=== PATIENT | male | born 1970 | race Hispanic/Latino ===

== ENCOUNTER 2018-02-07 23:26 | Emergency (ER) | payer BC ==
[2018-02-07] MEDS ORDERED: LIDOCAINE HCL 1% 20 ML VIAL ONE (23:47)
== END 2018-02-08 00:39 | disposition home or self-care (01) ==
LOC: EDH 23:26
DX: L72.3 Sebaceous cyst (principal)
CPT/HCPCS: 10060

== ENCOUNTER 2018-02-09 13:14 | Emergency (ER) | payer BC | END 2018-02-09 16:17 | disposition home or self-care (01) | LOC: EDH 13:14 | DX: Z48.01 Encounter for change or removal of surgical wound dressing (principal) | CPT/HCPCS: 99281 ==

== ENCOUNTER 2019-01-26 20:54 | Emergency (ER) | payer BC ==
[2019-01-26] MEDS ORDERED: CLONIDINE HCL 0.1 MG TABLET ONE (22:09)
== END 2019-01-26 23:01 | disposition left against medical advice (07) ==
LOC: EDH 20:54
DX: M60.272 Foreign body granuloma of soft tissue, not elsewhere classified, left ankle and foot (principal); I10 Essential (primary) hypertension
CPT/HCPCS: 73620